=== PATIENT | male | born 1980 | race African-American/Black ===

== ENCOUNTER 2023-04-22 14:05 | Emergency (ER) | payer BC ==
[~2023-04-22] VITALS: Ht 190.5 cm; Wt 126.1 kg
[2023-04-22 14:52] LABS: BASOPHILS % 0.6 % (0.0-1.0); EOSINOPHILS % 0.4 % (0.0-6.0); HEMATOCRIT 37.8 % (38.2-49.6); HEMOGLOBIN 12.9 g/dL (14.0-18.0); LYMPHOCYTES # (AUTO) 1.5 (1.0-3.2); LYMPHOCYTES % 21.9 % (18.0-39.1); MEAN CORPUSCULAR HEMOGLOBIN 31.9 pg (28-32); MEAN CORPUSCULAR HGB CONC 34.1 g/dL (31-35); MEAN CORPUSCULAR VOLUME 93.6 fL (81-99); MONOCYTES # (AUTO) 0.5 (0.2-0.8); MONOCYTES % 6.7 % (4.4-11.3); NEUTROPHILS # (AUTO) 4.7 (2.1-6.9); PLATELET COUNT 245 x10e3/uL (140-360); RED BLOOD COUNT 4.04 x10e6/uL (4.3-5.7); RED CELL DISTRIBUTION WIDTH 12.8 % (11.7-14.4); WHITE BLOOD COUNT 6.68 x10e3/uL (4.8-10.8)
[2023-04-22 15:17] LABS: CLARITY,URINE CLOUDY (CLEAR); COLOR,URINE YELLOW (YELLOW); KETONES,URINE NEGATIVE (NEGATIVE); LEUKOCYTE ESTERASE ,URINE MODERATE (NEGATIVE); NITRITE,URINE NEGATIVE (NEGATIVE); PROTEIN,URINE DIPSTICK TRACE (NEGATIVE); URINE UROBILINOGEN 0.2 mg/dL (0.2 - 1)
[2023-04-22 15:18] LABS: ALBUMIN 3.5 g/dL (3.5-5.0); ALBUMIN/GLOBULIN RATIO 1.1 (0.8-2.0); ANION GAP 11.1 mmol/L (8-16); CREATININE, SERUM 1.02 mg/dL (0.72-1.25); POTASSIUM 4.1 mmol/L (3.5-5.1)
[2023-04-22 15:27] LABS: BACTERIA,URINE MODERATE /HPF; EPITHELIAL CELLS,URINE FEW /LPF; RBC,URINE >50 /HPF (0-5); WBC,URINE (MAN) >50 /HPF (0-5)
[2023-04-22 15:28] LABS: MUCUS,URINE FEW (RARE)
[2023-04-22] MEDS ORDERED: CEFPODOXIME PR200 MG PO (17:38)
[2023-04-22 18:54] VITALS: BP 132/68; PULSE 78; RESP 18; O2SAT 97
== END 2023-04-22 18:05 | disposition home or self-care (01) ==
LOC: ER 14:20
DX: R30.0 Dysuria (principal); N39.0 Urinary tract infection, site not specified; Z86.39 Personal history of other endocrine, nutritional and metabolic disease
CPT/HCPCS: 36415; 74176; 80053; 81001; 85025; 99284

== ENCOUNTER 2024-03-16 19:45 | Emergency (ER) | payer BC ==
[~2024-03-16] VITALS: Ht 190.5 cm; Wt 126.1 kg
[~2024-03-16 19:45] MED LIST: CEFPODOXIME PR200 MG PO
[2024-03-16 21:18] VITALS: PULSE 70; RESP 18; TEMP 97.3
[2024-03-16 21:46] LABS: BASOPHILS % 0.7 % (0.0-1.0); EOSINOPHILS # (AUTO) 0.1 (0.0-0.4); EOSINOPHILS % 2.2 % (0.0-6.0); HEMATOCRIT 44.3 % (38.2-49.6); HEMOGLOBIN 15.7 g/dL (14.0-18.0); LYMPHOCYTES # (AUTO) 1.6 (1.0-3.2); LYMPHOCYTES % 27.5 % (18.0-39.1); MEAN CORPUSCULAR HEMOGLOBIN 33.2 pg (28-32); MEAN CORPUSCULAR HGB CONC 35.4 g/dL (31-35); MEAN CORPUSCULAR VOLUME 93.7 fL (81-99); MONOCYTES # (AUTO) 0.5 (0.2-0.8); MONOCYTES % 7.8 % (4.4-11.3); NEUTROPHILS # (AUTO) 3.6 (2.1-6.9); NEUTROPHILS % 61.5 % (38.7-80.0); PLATELET COUNT 186 x10e3/uL (140-360); RED BLOOD COUNT 4.73 x10e6/uL (4.3-5.7); RED CELL DISTRIBUTION WIDTH 11.6 % (11.7-14.4); WHITE BLOOD COUNT 5.89 x10e3/uL (4.8-10.8)
[2024-03-16 22:04] LABS: ALANINE AMINOTRANSFERASE 16 IU/L (0-55); ALBUMIN 3.9 g/dL (3.5-5.0); ALBUMIN/GLOBULIN RATIO 1.1 (0.8-2.0); ALKALINE PHOSPHATASE 59 IU/L (40-150); ANION GAP 13.7 mmol/L (8-16); BILIRUBIN,TOTAL 0.7 mg/dL (0.2-1.2); BLOOD UREA NITROGEN 19 mg/dL (7-26); BUN/CREATININE RATIO 13 (6-25); CALCIUM 9.2 mg/dL (8.4-10.2); CARBON DIOXIDE 25 mmol/L (22-29); CHLORIDE 104 mmol/L (98-107); CREATINE KINASE 194 IU/L (30-200); CREATININE, SERUM 1.42 mg/dL (0.72-1.25); EST GLOMERULAR FILTRATION RATE 64 ML/MIN (>=60); GLUCOSE 197 mg/dL (74-118); LIPASE 30 U/L (8-78); POTASSIUM 4.7 mmol/L (3.5-5.1); SODIUM 138 mmol/L (136-145); TOTAL PROTEIN 7.3 g/dL (6.5-8.1)
[2024-03-16 22:18] LABS: TROPONIN I < 0.05 ng/mL (0.0-0.40)
[2024-03-16] MEDS ORDERED: IOPAMIDOL 370 MG/ML 100 ML INFUS..BTL INJ ONE (22:35)
[2024-03-16] MEDS: FAMOTIDINE 20 MG/2 ML VIAL IV STA (22:48)
[2024-03-16] MEDS: ONDANSETRON HCL INJ 2MG/ML 2ML 2 MG/ML VIAL IV STA (22:48)
[2024-03-16] MEDS: SODIUM CHLORIDE 0.9% 1000ML 1,000 ML IV STA (22:48)
[2024-03-16 23:43] LABS: COLOR,URINE YELLOW (YELLOW)
[2024-03-16 23:44] LABS: BILIRUBIN,URINE SMALL (NEGATIVE); CLARITY,URINE CLEAR (CLEAR); GLUCOSE, URINE NEGATIVE (NEGATIVE); KETONES,URINE NEGATIVE (NEGATIVE); LEUKOCYTE ESTERASE ,URINE NEGATIVE (NEGATIVE); NITRITE,URINE NEGATIVE (NEGATIVE); PH,URINE 5.5 (5 - 7); PROTEIN,URINE DIPSTICK 1+ (NEGATIVE); URINE UROBILINOGEN 1 mg/dL (0.2 - 1); WBC,URINE (MAN) 0-5 /HPF (0-5)
[2024-03-16 23:45] LABS: BACTERIA,URINE MODERATE /HPF; EPITHELIAL CELLS,URINE FEW /LPF; RBC,URINE 0-5 /HPF (0-5)
[2024-03-16] MEDS ORDERED: ONDANSETRON ODT4 MG PO (23:56)
[2024-03-16] MEDS ORDERED: PEPCID20 MG PO (23:56)
[2024-03-17 00:06] VITALS: BP 131/100; PULSE 88; RESP 19; TEMP 98; O2SAT 98
== END 2024-03-17 00:10 | disposition home or self-care (01) ==
LOC: ER 19:53
DX: R10.10 Upper abdominal pain, unspecified (principal); I10 Essential (primary) hypertension; E11.65 Type 2 diabetes mellitus with hyperglycemia; R94.31 Abnormal electrocardiogram [ECG] [EKG]; Z85.841 Personal history of malignant neoplasm of brain
CPT/HCPCS: 36415; 74177; 80053; 81001; 82550; 83690; 84484; 85025; 93005; 99284; J2405; J7030; Q9967

== ENCOUNTER 2024-08-29 18:02 | Emergency (ER) | payer BC ==
[~2024-08-29] VITALS: Ht 190.5 cm; Wt 126.1 kg
[~2024-08-29 18:02] MED LIST changes: +ONDANSETRON ODT4 MG PO; +PEPCID20 MG PO
[2024-08-29 18:11] VITALS: TEMP 97.9
[2024-08-29 18:28] LABS: EOSINOPHILS % 0.2 % (0.0-6.0); HEMATOCRIT 40.2 % (38.2-49.6); HEMOGLOBIN 13.2 g/dL (14.0-18.0); LYMPHOCYTES # (AUTO) 0.7 (1.0-3.2); LYMPHOCYTES % 12.4 % (18.0-39.1); MEAN CORPUSCULAR HEMOGLOBIN 30.1 pg (28-32); MEAN CORPUSCULAR HGB CONC 32.8 g/dL (31-35); MEAN CORPUSCULAR VOLUME 91.8 fL (81-99); MONOCYTES # (AUTO) 0.4 (0.2-0.8); MONOCYTES % 7.1 % (4.4-11.3); NEUTROPHILS # (AUTO) 4.7 (2.1-6.9); NEUTROPHILS % 78.8 % (38.7-80.0); RED BLOOD COUNT 4.38 x10e6/uL (4.3-5.7); RED CELL DISTRIBUTION WIDTH 19.2 % (11.7-14.4); WHITE BLOOD COUNT 5.91 x10e3/uL (4.8-10.8)
[2024-08-29 18:31] LABS: PLATELET COUNT 148 x10e3/uL (140-360)
[2024-08-29 18:44] LABS: ANION GAP 15.5 mmol/L (8-16); BILIRUBIN,TOTAL 0.8 mg/dL (0.2-1.2); CALCIUM 8.4 mg/dL (8.4-10.2); CREATININE, SERUM 0.81 mg/dL (0.72-1.25); POTASSIUM 4.5 mmol/L (3.5-5.1); TOTAL PROTEIN 5.9 g/dL (6.5-8.1)
[2024-08-29 18:49] LABS: TROPONIN I 0.007 ng/mL (0-0.300)
[2024-08-29 19:40] VITALS: BP 172/117; PULSE 68
[2024-08-29] MEDS: METOPROLOL TARTRATE INJ 1 MG/ML VIAL IV ONE (19:40)
[2024-08-29 20:00] VITALS: PULSE 87; RESP 20; O2SAT 100
== END 2024-08-29 20:54 | disposition other institution (70) ==
LOC: ER 18:44
DX: R56.9 Unspecified convulsions (principal); I62.9 Nontraumatic intracranial hemorrhage, unspecified; E11.65 Type 2 diabetes mellitus with hyperglycemia; I10 Essential (primary) hypertension; R94.31 Abnormal electrocardiogram [ECG] [EKG]; Z85.841 Personal history of malignant neoplasm of brain
CPT/HCPCS: 36415; 70450; 80053; 82550; 84484; 85025; 93005; 99285